=== PATIENT | male | born 1985 | race African-American/Black ===

== ENCOUNTER 2023-06-19 07:26 | Emergency (ER) | payer SELFPAY ==
[2023-06-19] MEDS ORDERED: Ketorolac Tromethamine 30 MG/ML VIAL ONE (07:45)
== END 2023-06-19 08:10 | disposition home or self-care (01) ==
LOC: ERS 07:26
DX: M25.561 Pain in right knee (principal)
CPT/HCPCS: 96372; 99283; J1885